=== PATIENT | female | born 1995 | race Caucasian/White ===

== ENCOUNTER 2023-10-20 14:47 | Emergency (ER) | payer BC, OTHER ==
[~2023-10-20] VITALS: Ht 165.1 cm; Wt 81.6 kg
[2023-10-20 14:52] VITALS: BP 140/94; PULSE 96; RESP 22; TEMP 98.4; O2SAT 99
[2023-10-20] MEDS: ALUMINUM HYD/MAG/SIMETHICONE 30 ML UDC PO ONE (15:27)
[2023-10-20 15:34] LABS: BASOPHILS # (AUTO) 0.1 K/uL (0.00-0.22); BASOPHILS % (AUTO) 0.8 % (0.0-2.0); EOSINOPHILS # (AUTO) 0.1 K/uL (0-0.4); EOSINOPHILS % (AUTO) 1.1 % (0.0-4.0); HEMATOCRIT 41.2 % (36-48); HEMOGLOBIN 13.3 g/dL (12.0-16.0); LYMPHOCYTES # (AUTO) 2.3 K/uL (2.5-16.5); LYMPHOCYTES % (AUTO) 29.7 % (20.5-51.1); MEAN CORPUSCULAR HEMOGLOBIN 27 pg (27-31); MEAN CORPUSCULAR HGB CONC 32 g/dL (33-37); MEAN CORPUSCULAR VOLUME 83.9 fL (80-94); MONOCYTES # (AUTO) 0.7 K/uL (0.8-1.0); MONOCYTES % (AUTO) 8.4 % (1.7-9.3); NEUTROPHILS # (AUTO) 4.7 K/uL (1.8-7.7); PLATELET COUNT (AUTO) 261 K/uL (140-450); RED CELL DISTRIBUTION WIDTH 14.1 % (11.6-13.7); WHITE BLOOD COUNT (AUTO) 7.7 K/uL (4.8-10.8)
[2023-10-20 15:36] LABS: APPEARANCE,URINE CLEAR (CLEAR); BILIRUBIN,URINE NEGATIVE (NEGATIVE); BLOOD, URINE NEGATIVE (NEGATIVE); COLOR,URINE YELLOW (YELLOW); LEUKOCYTE ESTERASE ,URINE 1+ (NEGATIVE); NITRITE, URINE NEGATIVE (NEGATIVE); PROTEIN,URINE 1+ (NEGATIVE); UGLUCOSE NEGATIVE (NEGATIVE); UROBILINOGEN,URINE 0.2 EU/dL (0.2 - 1)
[2023-10-20 15:55] LABS: BACTERIA,URINE >30 (MANY) /HPF (None Seen); MUCUS,URINE 3+ /LPF (None Seen); SQUAMOUS EPITHELIAL CELL,UR >10 (MANY) /LPF (0-3 (FEW)); YEAST,URINE None Seen /HPF (None Seen)
[2023-10-20 16:00] LABS: ALBUMIN 3.8 g/dL (3.4-5.0); ANION GAP 15.1 (8-16); CALCIUM 10.1 mg/dL (8.5-10.1); CARBON DIOXIDE 26.5 mmol/L (21-32); CREATININE 0.7 mg/dL (0.6-1.3); POTASSIUM 3.6 mmol/L (3.5-5.1); TOTAL BILIRUBIN 0.6 mg/dL (0.0-1.0); TOTAL PROTEIN, SERUM 8.2 g/dL (6.4-8.2)
[2023-10-20] MEDS: ONDANSETRON 4 MG ODT PO ONE (16:11)
[2023-10-20] MEDS: KETOROLAC 30 MG/ML VIAL IM ONE (16:12)
[2023-10-20] MEDS ORDERED: TAMS0.4C96 PO (17:17)
[2023-10-20] MEDS ORDERED: CEPH-588 PO (17:17)
[2023-10-20] MEDS ORDERED: ONDA-188 SL (17:17)
[2023-10-20] MEDS ORDERED: IBUP-2213 PO (17:17)
[2023-10-20 17:42] VITALS: BP 125/94; PULSE 84; RESP 16; TEMP 98.1; O2SAT 99
== END 2023-10-20 17:42 | disposition home or self-care (01) ==
LOC: MED 14:47
DX: N39.0 Urinary tract infection, site not specified (principal); N20.0 Calculus of kidney; R74.01 Elevation of levels of liver transaminase levels; R11.2 Nausea with vomiting, unspecified; Z87.442 Personal history of urinary calculi; Z79.1 Long term (current) use of non-steroidal anti-inflammatories (NSAID); Z79.2 Long term (current) use of antibiotics; Z79.899 Other long term (current) drug therapy
CPT/HCPCS: 36415; 74176; 80053; 81001; 81025; 83690; 85025; 87086; 96372; 99285; J1885; Q0162

== ENCOUNTER 2023-12-11 07:55 | Emergency (ER) | payer BC, OTHER ==
[~2023-12-11] VITALS: Ht 165.1 cm; Wt 77.6 kg
[~2023-12-11 07:55] MED LIST: CEPH-588 PO; IBUP-2213 PO; ONDA-188 SL; TAMS0.4C96 PO
[2023-12-11 07:58] VITALS: BP 141/96; PULSE 101; RESP 16; TEMP 97.7; O2SAT 100
[2023-12-11] MEDS ORDERED: ONDA8TAB87 PO (08:21)
[2023-12-11] MEDS ORDERED: OMEP40EC23 PO (08:21)
[2023-12-11] MEDS ORDERED: ALUMINUM HYD/MAG/SIMETHICONE 30 ML UDC ONE (08:42)
[2023-12-11] MEDS ORDERED: DICYCLOMINE HCL LIQUID 10 MG/5 ML UDC ONE ×2 (08:43→08:44)
[2023-12-11 08:52] VITALS: BP 133/92; PULSE 95; RESP 16; TEMP 36.50292; O2SAT 100
[2023-12-11] MEDS: DICYCLOMINE HCL LIQUID 20 MG, ALUMINUM HYD/MAG/SIMETHICONE 30 ML, LIDOCAINE VISCOUS 2% ... PO ONE (08:55)
== END 2023-12-11 08:52 | disposition home or self-care (01) ==
LOC: MED 07:55
DX: R10.13 Epigastric pain (principal); R11.2 Nausea with vomiting, unspecified; R19.7 Diarrhea, unspecified; R03.0 Elevated blood-pressure reading, without diagnosis of hypertension; Z79.899 Other long term (current) drug therapy
CPT/HCPCS: 81025; 99283